=== PATIENT | female | born 1930 | race Caucasian/White ===

== ENCOUNTER → 2016-11-08 | Outpatient (CLI) | payer MEDICARE, BC ==
--- NOTE | ~2016-11-08 | PUL ---
PATIENT'S NAME: TANIA MAZARIEGOS [facility] AGE: 86 Y [address] 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 The test was performed on supplemental oxygen at 2 liters/minute. Her oxygen saturation the beginning of the test was 98%, then dropped to 82% during the test at that time supplemental oxygen was increased to 3 liters/minute. At the end of the test the patient's oxygen saturations were was 89% while on supplemental oxygen at 3 liters/minute. Her perceived dyspnea was 5/10 on the Sushma scale. She had appropriate increases in her heart rate and blood pressure. She required three periods of rest. PHYSICIAN INTERPRETATION: The patient has severe limitation in her exercise capacity with significant desaturations and hypoxia while on supplemental oxygen at 2 liters/minute during exertion. MD PIERRE GARRETT/agapito /[id number] dtt: 11/10/16 0944 , PATRICK VALENCIA dtd: 11/10/16 0720
--- NOTE | ~2016-11-08 | PUL ---
PATIENT'S NAME: TANIA MAZARIEGOS [facility] AGE: 86 Y [address] ROOM: [place] [address] LOCATION: [facility] ADMIT DATE: 11/08/2016 Pulmonary DISCHARGE DATE: FAMILY PHYSICIAN: Karine Russ MD ATTENDING PHYSICIAN: PATRICK VALENCIA NAME OF PROCEDURE: Pulmonary Function Test DATE OF PROCEDURE: November 08, 2016 TECH: ATripe, LENDING ACTIVITIES SUPERVISOR REASON FOR EXAM: COPD RESULTS: 1. FVC was 1.32 liters which is 61% of predicted and low, FEV1 was 0.49 liters which is 31% of predicted and low, and FEV1/FVC was 37% and low. The flow volume curve revealed significant airflow limitation. After bronchodilator administration FVC increased to 1.45 liters which is a 10% increase and FEV1 increased to 0.5 liters which is a 1% increase. FEV1/FVC was 34%. 2. DLCO was 4 with an adjusted DLCO of 4 as well which is 31% of predicted and low. 3. Total lung capacity was 5.5 liters which is 129% of predicted and high, and residual volume was 4.2 liters which is 221% of predicted and high. 4. PH was 7.47, PCO2 was 43, PO2 of 77 while on supplemental oxygen at 2 liters/minute. The base excess was 6.8. PHYSICIAN INTERPRETATION: The patient has very severe airflow limitation without a significant bronchodilator response. Her diffusion capacity is severely low. There is evidence of hyperinflation and air trapping on the lung volumes. She has metabolic alkalosis without adequate respiratory compensation and no hypoxia at rest on supplemental oxygen at 2 liters/minute. MD PIERRE GARRETT/agapito /[id number] dtt: 11/10/16 0942 , PATRICK VALENCIA dtd: 11/10/16 0717
[2016-11-08 07:15] LABS: BICARBONATE 31.3 mmol/L (18.0-23.0); PCO2 43 mmHg (35-45); PO2 77 mmHg (80-90)
== END | disposition disaster alternative care site (69) ==
LOC: GRTH 06:39
PROVIDERS: Internal Medicine Critical Care Medicine
DX: J44.9 Chronic obstructive pulmonary disease, unspecified (principal)

== ENCOUNTER → 2017-01-19 | Outpatient (CLI) | payer MEDICARE, BC | END | disposition disaster alternative care site (69) | LOC: GBCOE 08:52 | DX: Z12.31 Encounter for screening mammogram for malignant neoplasm of breast (principal) | CPT/HCPCS: G0202 ==